=== PATIENT | male | born 1935 | race Caucasian/White ===

== ENCOUNTER 2017-01-05 16:13 | Emergency (ER) | payer OTHER, MEDICARE ==
[~2017-01-05] VITALS: Ht 182.9 cm; Wt 91.6 kg
[~2017-01-05 16:13] MED LIST: A/B OTIC15 ML; AMIODARONE200 MG PO; AMLODIPINE BESYL5 M1 PO; ASPIR 8181 MG PO; BENAZEPRIL HYDR40 M1 PO; CHOLESTRAMINE PO; NIASPAN500 MG PO; PRILOSEC OTC20 M1 PO; SOTALOL HCL80 MG PO; XARELTO20 M1 PO
[2017-01-05 16:38] VITALS: BP 162/81
== END 2017-01-05 19:24 | disposition home or self-care (01) ==
LOC: ED 16:13
DX: S62.630A Displaced fracture of distal phalanx of right index finger, initial encounter for closed fracture (principal); S61.210A Laceration without foreign body of right index finger without damage to nail, initial encounter; X58.XXXA Exposure to other specified factors, initial encounter; Y93.89 Activity, other specified; Y99.8 Other external cause status; Y92.89 Other specified places as the place of occurrence of the external cause
CPT/HCPCS: 90715; J2001

== ENCOUNTER → 2017-07-11 | Outpatient (CLI) | payer OTHER, MEDICARE | END | disposition home or self-care (01) | LOC: RD 08:25 | DX: R05 Cough (principal) ==